=== PATIENT | female | born 1945 | race Caucasian/White ===

== ENCOUNTER → 2024-05-01 10:51 | Outpatient (BNVA) | payer MEDICARE, SELFPAY | PROVIDERS: PCP Family Medicine; Visit Provider Family Medicine | DX: M81.0 Age-related osteoporosis without current pathological fracture (principal); R53.83 Other fatigue; R03.0 Elevated blood-pressure reading, without diagnosis of hypertension; R61 Generalized hyperhidrosis | CPT/HCPCS: 80053; 82306; 82607; 84439; 84443; 85025; 93005 ==

== ENCOUNTER 2025-06-01 15:50 | Outpatient (CLI) | payer MEDICARE, SELFPAY ==
--- NOTE | 2025-06-01 15:57 | XRR_ITS ---
PROCEDURE INFORMATION: Exam: XR Chest Exam date and time: 06/01/2025 4:02 PM Age: 79 years old Clinical indication: Shortness of breath; Additional info: Diaphoresis TECHNIQUE: Imaging protocol: Radiologic exam of the chest. Views: 2 views. COMPARISON: l spine FINDINGS: Lungs: No focal consolidation or other acute appearing pulmonary opacity. Pleural spaces: No pleural effusion or pneumothorax noted. Heart/Mediastinum: There is no cardiomegaly. Bones/joints: No acute osseous abnormality. There is degenerative disease of the spine. XR/XR chest 2V* [id number] IMPRESSION: No acute findings.
[2025-06-01 16:27] LABS: Hematocrit 49.7 % (36-47); Hemoglobin 16.20 g/dL (11.27-16.99); Mean Corpuscular HGB Conc 32.6 g/dL (30-55); Mean Corpuscular Hemoglobin 30.0 pg (27-33); Mean Corpuscular Volume 92.0 fl (85-98); Nucleated Red Blood Cells % 0 %; Platelet Count 215 10^3/cmm (157-399); Red Blood Count 5.40 10^6/uL (3.85-5.65); White Blood Count 6.25 10^3/uL (3.29-11.43)
[2025-06-01 17:33] LABS: Alanine Aminotransferase 17 U/L (0-33); Albumin Level 4.6 g/dL (3.5-5.2); Alkaline Phosphatase 113 U/L (35-105); Anion Gap 15.0 (5-19); Aspartate Amino Transferase 18 U/L (0-32); Blood Urea Nitrogen 20 mg/dL (8-23); Calcium 9.7 mg/dL (8.5-10.5); Carbon Dioxide 25 mmol/L (22-29); Chloride 102 mmol/L (98-107); Globulin 3.0 g/dL (1.3-4.6); Glucose 103 mg/dL (65-115); Osmolality Calculated 289 mOsm/kg (285-295); Potassium 4.0 mmol/L (3.5-5.1); Sodium 138 mmol/L (136-145); Thyroid Stimulating Hormone 1.27 uIU/mL (0.27-4.20); Total Protein 7.6 g/dL (6.6-8.7)
[2025-06-01 20:46] LABS: Free T4 Free Thyroxine 1.35 ng/dL (0.82-1.77)
== END 2025-06-01 15:51 | disposition home or self-care (01) ==
PROVIDERS: PCP Family Medicine; Visit Provider Family Medicine
DX: R61 Generalized hyperhidrosis (principal); D69.6 Thrombocytopenia, unspecified; R51.9 Headache, unspecified; G89.29 Other chronic pain; R53.82 Chronic fatigue, unspecified
CPT/HCPCS: 36415; 71046; 80053; 83615; 84439; 84443; 84481; 85025; 86140

== ENCOUNTER 2025-06-04 09:42 | Outpatient (CLI) | payer MEDICARE, SELFPAY ==
[2025-06-04 09:54] VITALS: BMI 32.5
--- NOTE | 2025-06-04 09:57 | ECG_ITS ---
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 The perfusion scan will be documented separately. DATA: Baseline heart rate was 73 beats per minute. Baseline blood pressure was 161/82 millimeters of mercury. Target heart rate was 142. Maximum heart rate achieved was 94. which was 66% of the predicted target heart rate. Maximum blood pressure was 161/82 millimeters of mercury. The reason for ending the test was completion of the protocol. The patient did not experience any symptoms. ELECTROCARDIOGRAM: BASELINE: Sinus rhythm. Normal axis. Otherwise, no ST-T changes suggestive of ischemia noted. No arrhythmia noted. Interventricular conduction delay. EXERCISE: After Lexiscan injection, no ST-T changes suggestive of ischemic noted. No arrhythmia noted. CONCLUSION: Please note due to baseline abnormality of the EKG specificity and sensitivity of the EKG portion of LexiScan MIBI stress test will be low 1. EKG not suggestive of ischemia 2. Lexiscan injection unremarkable. 3. Perfusion scan will be documented separately. Electronically Signed On 06-07-2025 22:50:07 CDT by CHRISTA DUENAS [email or web address]
--- NOTE | 2025-06-04 09:58 | NMCV_ITS ---
NM minnie perf SPECT r/s* [id number] Dunia Garcia Age: 79 Gender: F : 1945 Exam Date: 06/04/2025 11:00 Ordering Phys: Uzma Rick MD Technologist: ARTURO Michele Exam Location: [facility] Indications: cp STRESS TEST Please see separate stress test report in [facility] for full findings IMAGE PROTOCOL Rest/Stress 1 Lexiscan Day Radiopharmaceutical Dose (mCi) Administration Site Administered by Rest: Tc-99m 10.6 IV Lani Rdz, SOFTWARE SECURITY ARCHITECT Sestamibi Stress:Tc-99m 32.7 IV Lani Lizamagle, SOFTWARE SECURITY ARCHITECT Sestamibi Rest: 04-Jun-2025 60 Discovery 630 Stress: 04-Jun-2025 30 Discovery 630 Supine position only as patient was unable to lay prone. 0.4mg Lexiscan. Patient unable to bring arms up for imaging. SPECT RESULTS Technical Quality: Good Raw Data Analysis: Normal Image Corrections: No attenuation or motion correction applied Summed Stress Score: 9 Summed Rest Score: 10 Summed Difference Score: 1 PERFUSION FINDINGS Large area of fixed perfusion defect noted in basal to distal inferior and inferolateral wall suggestive of old myocardial infarction versus scarring without significant reversibility. 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 Abram Callaway MD (Electronically Signed) Final Date: 04 June 2025 19:13 S
[2025-06-04 11:57] VITALS: BP 143/70; PULSE 89
== END 2025-06-04 09:43 | disposition home or self-care (01) ==
LOC: CDL 09:49
PROVIDERS: PCP Family Medicine; Visit Provider Family Medicine
DX: R07.9 Chest pain, unspecified (principal); R93.1 Abnormal findings on diagnostic imaging of heart and coronary circulation
CPT/HCPCS: 36415; 78452; 93017; 96374; A9500; J2785

== ENCOUNTER 2025-06-12 13:53 | Outpatient (CLI) | payer MEDICARE, SELFPAY ==
--- NOTE | 2025-06-12 14:30 | MR_ITS ---
WS: [id number] MRI HEAD WITHOUT CONTRAST TECHNIQUE: Sagittal T1, T2 axial, T2 axial FLAIR, axial and coronal T1 images, axial susceptibility weighted imaging, axial diffusion weighted images, and coronal T2 images were obtained. CLINICAL INFORMATION: intractable worsening R sided headaches COMPARISON: None. FINDINGS: No evidence of restricted diffusion to suggest acute ischemia. Advanced small vessel changes. Moderate parenchymal volume loss. Normal posterior fossa. Normal vascular flow voids at the skull base. No extra-axial fluid collections. Paranasal sinuses and mastoid air cells are well aerated. Normal optic chiasm and pituitary infundibulum. Mild symmetric atrophy temporal lobes and hippocampal formations. No hemosiderin on susceptibility-weighted images. MR/MR head wo con* [id number] IMPRESSION: 1. No evidence of restricted diffusion to suggest acute ischemia. 2. Advanced small vessel changes with moderate parenchymal volume loss. 3. No hemosiderin on susceptibility-weighted images. 4. No other acute findings.
== END 2025-06-12 13:54 | disposition home or self-care (01) ==
LOC: RAD 13:54
PROVIDERS: PCP Family Medicine; Visit Provider Family Medicine
DX: G44.021 Chronic cluster headache, intractable (principal); R93.0 Abnormal findings on diagnostic imaging of skull and head, not elsewhere classified; G31.89 Other specified degenerative diseases of nervous system
CPT/HCPCS: 70551

== ENCOUNTER → 2025-06-15 13:42 | Outpatient (BNVA) | payer MEDICARE, SELFPAY | PROVIDERS: PCP Family Medicine; Visit Provider Family Medicine | DX: Z00.00 Encounter for general adult medical examination without abnormal findings (principal); Z13.6 Encounter for screening for cardiovascular disorders; I51.89 Other ill-defined heart diseases; Z11.59 Encounter for screening for other viral diseases | CPT/HCPCS: 80061; 86803 ==

== ENCOUNTER 2025-06-26 12:07 | Outpatient (CLI) | payer MEDICARE, SELFPAY ==
--- NOTE | 2025-06-26 12:45 | USCV_ITS ---
Dunia Garcia Age: 79 Gender: F : 1945 Exam Date: 06/26/2025 13:05 Ordering Phys: Uzma Rick MD Technologist: RENATA Exam Location: [facility] [place] Indication: fatigue, diaphoresis; stress test shows area of old infarct BP: 124 / 84 HR: 69 Rhythm: Sinus Technical Quality: Adequate MEASUREMENTS (Male / Female) Normal Values 2D ECHO LV Diastolic Diameter PLAX 5.0 cm 4.2 - 5.9 / 3.9 - 5.3 cm IVS Diastolic Thickness 0.9 cm 0.6 - 1.0 / 0.6 - 0.9 cm IVS Systolic Thickness 1.1 cm LVPW Diastolic Thickness 0.8 cm 0.6 - 1.0 / 0.6 - 0.9 cm LVPW Systolic Thickness 1.1 cm LVOT Diameter 2.0 cm LV Ejection Fraction 2D Teich 76.9 % LV Ejection Fraction MOD 4C 65.4 % LV Ejection Fraction MOD 2C 62.0 % LV Ejection Fraction 2C AL 62.5 % LA Diameter 4.1 cm RA Systolic Volume 4C AL 34.3 ml RA Systolic Volume 4C MOD 32.7 ml LA Sys Volume AL 33.6 cm cubed LA Sys Volume Index AL 16.0 cm cubed/m squared IVC Diameter 1.3 cm M-MODE LA Ao Ratio MM 1.4 AV Cusp Separation MM 2.0 cm DOPPLER AV Peak Velocity 115.0 cm/s LVOT Peak Velocity 95.0 cm/s AV Area Cont Eq vti 3.2 cm squared AV Area Cont Eq pk 2.6 cm squared MV Peak Velocity 92.0 cm/s MV Area PHT 2.8 cm squared Mitral E to A Ratio 0.7 TR Peak Velocity 161.0 cm/s TR Peak Gradient 10.4 mmHg TR Mean Velocity 113.0 cm/s TR Mean Gradient 5.8 mmHg TR Velocity Time Integral 29.4 cm PV Peak Velocity 81.7 cm/s RV Ejection Time 0.3 s FINDINGS Left Ventricle Normal left ventricular size, systolic function and wall thickness, with no regional wall motion abnormalities. Left ventricular ejection fraction is estimated normal at 60 %. Right Ventricle Normal right ventricular size and systolic function. Right Atrium Normal right atrial size. Left Atrium Normal left atrial size. IA Septum Normal interatrial septum. Mitral Valve Mildly thickened mitral valve. Trace mitral valve regurgitation. Aortic Valve Thickened aortic valve. No aortic valve stenosis. Tricuspid Valve Structurally normal tricuspid valve. Trace tricuspid valve regurgitation. TV PG = 8 mmHg. Normal right heart and pulmonary pressures Pulmonic Valve Pulmonic valve not well visualized. Trace pulmonary valve regurgitation. Pericardium No pericardial effusion. Aorta Normal aorta size at proximal ascending aorta. IVC Normal inferior vena cava. CONCLUSIONS Normal left ventricular size and systolic function. LVEF normal 60%. Normal RV size and RV systolic function. Normal chamber sizes. No significant valvular abnormality noted. Normal right heart and pulmonary pressures. James Sparrow MD (Electronically Signed) Final Date: 07 July 2025 10:46 S
== END 2025-06-26 12:08 | disposition home or self-care (01) ==
LOC: RAD 12:07
PROVIDERS: PCP Family Medicine; Visit Provider Family Medicine
DX: R53.82 Chronic fatigue, unspecified (principal); I51.89 Other ill-defined heart diseases
CPT/HCPCS: 93306

== ENCOUNTER → 2025-07-21 14:04 | Outpatient (BNVA) | payer MEDICARE, SELFPAY | PROVIDERS: PCP Family Medicine; Referring Provider Family Medicine; Visit Provider Internal Medicine | DX: R07.9 Chest pain, unspecified (principal); I10 Essential (primary) hypertension; Z79.82 Long term (current) use of aspirin; R06.09 Other forms of dyspnea | CPT/HCPCS: 36415; 80048; 85025; 85610; 93005; 99214 ==

== ENCOUNTER 2025-08-04 08:45 | Outpatient (CLI) | payer MEDICARE, SELFPAY ==
[2025-08-04] VITALS (20 sets, daily range): BP systolic 118–177; BP diastolic 62–86; PULSE 64–80; RESP 14–21; TEMP 36.9; O2SAT 91–100; BMI 33.4
--- NOTE | 2025-08-04 09:00 | XACV_ITS ---
Ht: 168 cm Wt: 94 kg BSA: 2.13 m2 Gender: Female : 1945 Any Known Allergies: Sulfa Exam Priority: Routine Indication(s): - Chest pain - Abnormal nuclear perfusion test Procedure(s): Procedure Description: Diagnostic procedure Procedure Description: Left Heart Catheterization Procedure Description: Left ventriculography Procedure Description: Coronary Angiography Diagnostic Cath Status: Elective Diagnostic Findings * INDICATION: Worsening dyspnea on exertion/ abnormal stress test. * No significant disease noted in the Left Main, Left Anterior Descending, Right, or Circumflex coronary arteries. * Coronary angiography shows right dominance. Conclusions 1. No significant disease noted in the Left Main, Left Anterior Descending, Right, or Circumflex coronary arteries. 2. Normal left ventricular systolic function. Ejection fraction of 60%. Recommendations * Aggressive risk factor modification. * Outpatient cardiology follow up in 2-4 weeks. Interventional RX Recommendation: medical therapy and/or counseling Diagnostic RX Recommendation: medical therapy and/or counseling Anticoagulation: Heparin Ventriculography Ejection Fraction: 60.0 % Pressures Phase:Rest AO : 200 / 103 ( 89 ) @ 10:44:00 AM 119 / 73 ( 96 ) @ 10:44:00 AM 120 / 75 ( 97 ) @ 10:45:00 AM 148 / 75 ( 107 ) @ 10:49:00 AM 148 / 75 ( 107 ) @ 10:49:00 AM 147 / 75 ( 107 ) @ 10:49:00 AM LV : 147 / -2 / 20 @ 10:48:00 AM 147 / -2 / 22 @ 10:49:00 AM 148 / -2 / 23 @ 10:49:00 AM Valves Phase:DefaultPhase AV : 0.0 @ 10:57:45 AM AV Mean Gradient: 0.0 @ 10:57:45 AM Clinical Evaluation EBL: 5mL-10mL Procedural Details Procedure Consent Obtained. Admit Source: Out Patient. Current Diagnosis : Chest Pain. Pre-Procedure Time Out. Identified patient by full name and date of as verbalized by the patient/guarantor. Does the consent match the physician's order: Yes. Accurate & Complete Informed Consent: Yes. Inpatient/Outpatient History & Physical on Chart: Yes. If H&P is completed, is and addenduem needed: No; If yes, is the addendum complete: N/A. Visualize and Verify Site with Patient/Guarantor: N/A. Relevant Radiology Images available: N/A. The risks, benefits, and alternatives of sedation and/or procedure were discussed by physician. The patient agrees to continue. Procedure started. [facility] Clinical Fraility Score: 3: Managing Well. Hospice Manager Indications: Other. Chest Pain Symptom Assessment: Atypical Angina. Cardiovascular Instability: No. Correct patient, site and procedure confirmed by cath team. Current diagnosis: Chest Pain; Abnormal stress test. PERRLA. 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 Lungs clear x 5 lobes. IV Site on Arrival: 20 gauge in the left anticubital. IV Fluids: 0.9% NaCl at KVO. 0 mL infused prior to cardiac cath lab manager. Pre Procedural Pulses: bilateral posterior tibial was 2+. Pre Procedural Pulses: bilateral dorsalis pedis was 3+. Pre Procedural Pulses: bilateral radial was 3+. Oxygen started at 3liters/min via nasal canula. right groin was prepped with chloroprep then draped in the usual sterile fashion. right radial was prepped with chloroprep then draped in the usual sterile fashion. Physician notified. Baseline sample Acquired. HR: 76 BPM. Family updated by MD prior to the start of the procedure. Physician arrived. Physician scrubbed in. Immediate Pre-Procedure Time Out. Correct Patient: Yes; Correct Procedure: Yes; Correct Site: Yes; Correct Patient Position: Yes; Correct Supplies: Yes; Dried Flammable Prep: Yes; Blood Products Available: N/A;. Lidocaine 1% infiltrated to the right radial. Arterial access obtained. A 5 guinean TIG catheter in over wire. Multiple views taken of left coronary artery. Catheter redirected to the RCA. Multiple views taken of right coronary artery. Catheter removed over the exchange wire. EDP Sample taken: LV 147/-3,20; HR: 70 BPM; SpO2: 97%. A 5 guinean Angled Pig catheter in over wire. LV gram performed in CHANDLER @ 10 mL/second for a total of 30 mL. Patient EF: Normal. EDP Sample taken: LV 147/-3,22; HR: 71 BPM; SpO2: 97%. Pullback taken: LV 148/-3,23; AO 148/75(107); Mean: 0mmHg, Peak to Peak: 0mmHg, SEP: 6sec/min; HR: 67 BPM; SpO2: 97%. Catheter removed over the exchange wire. Physician review of films. Physician scrubbed out. A TR Band was successful obtaining hemostatsis at the Right Radial artery insertion site. TR band placed. Hemostasis obtained. Post Procedure: Pulses reassessed and unchanged. PERRLA. 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 No VTE prophylaxis required. Medication's Wasted: Lidocaine 1% = 18 ml , Nitro = 49.8 mg , Heparin = 1000 units , Fentanyl = 75 mcg. Total IV fluids: 50 mL. Fluoro: 1:07. Contrast type used: Omnipaque 300 mg/mL, 150 mL bottle. [id number]. Post-op diagnosis: Non obstuctive CAD. Complications: None. Estimated blood loss: 5mL-10mL. Responsiveness - Normal response to verbal stimuli; alert and oriented, PERRLA. Airway - Unaffected, no intervention required; spontaneous ventilation. Circulation: W/N/L, pulses unchanged. Nausea/Vomiting: No. Procedure completed. Vital chart was stopped. Patient transferred by wheelchair to CPRU. Access Site Site: Right Radial artery Sheath Size: 6 Fr Hemostasis Method: TR Band Hemostasis Success: Successful Procedure Medications Start: 10:32 AM Stop: 10:32 AM Medication: Versed 1 mg and Fentanyl 25 mcg Amount: 1 Route: I.V. Start: 10:39 AM Stop: 10:39 AM Medication: Versed Amount: 1 mg Route: I.V. Start: 10:43 AM Stop: 10:43 AM Medication: Nitrogylcerin Amount: 200 mcg Route: I.A. Start: 10:43 AM Stop: : AM Medication: Heparin Amount: 5000 units Route: I.V. I, the attending physician, have reviewed and verified all procedure medications. Yes, all medications given per verbal order History/Risk Factors Hypertension: Yes Dyslipidemia: No Peripheral Arterial Disease (PAD): No Myocardial Infarction ([place]): No Obesity: Yes Renal Disease: No Tobacco Use: Never Prior Interventions PCI: No CABG: No Valve Surgery: No Report Signatures Finalized by Keith Khalil MD on 08/22/2025 11:42 AM
--- NOTE | 2025-08-04 10:36 | W.PM.OPSUD ---
Surgery/Procedure H&P Update DATE OF PROCEDURE: August 04, 2025 DATE H&P PERFORMED: 07/21/25 H&P UPDATE INFORMATION: I have reviewed H&P completed within last 30 days, I have examined patient prior to procedure and No changes to prior documentation PREOP DIAGNOSIS: Worsening dyspnea on exertion/ abnormal stress test PRIMARY INDICATION FOR PROCEDURE: Worsening dyspnea on exertion/ abnormal stress test PLANNED PROCEDURE: Operation Date: 08/04/25 10:00 Proposed Procedures p LHC w/wo LV & Coros(Left) - Keith Khalil M.D Possible percutaneous coronary intervention PATIENT REASSESSED PRIOR TO SEDATION, WITH NO CHANGE NOTED: Yes PHYSICAL EXAM: alert, oriented x 3, clear to auscultation bilaterally and regular rate & rhythm AIRWAY EVAL/ANESTHESIA PLAN: normal airway, ASA III, Local Anesthesia, Risks, benefits & alternatives of sedation and/or procedure discussed and Patient agrees to continue as planned ADDITIONAL INFORMATION: Moderate sedation
== END 2025-08-04 14:42 | disposition home or self-care (01) ==
PROVIDERS: PCP Family Medicine; Visit Provider Internal Medicine
DX: R06.09 Other forms of dyspnea (principal); R94.39 Abnormal result of other cardiovascular function study; I10 Essential (primary) hypertension; E66.9 Obesity, unspecified; Z68.33 Body mass index [BMI] 33.0-33.9, adult; Z79.82 Long term (current) use of aspirin
CPT/HCPCS: 36415; 93458; 99152; 99153; C1769; C1887; C1894; J1644; J2250; J3010; J3490; J9999; Q0163; Q9967